=== PATIENT | female | born 1995 | race African-American/Black ===

== ENCOUNTER 2025-07-04 20:13 | Emergency (ER) | payer OTHER ==
[2025-07-04] MEDS ORDERED: Metoclopramide HCl 10 MG (2 mL) VIAL ONE (21:16)
[2025-07-04] MEDS ORDERED: diphenhydrAMINE 50 MG/ML VIAL ONE (21:16)
== END 2025-07-04 22:03 | disposition home or self-care (01) ==
LOC: CSHERS 20:13
DX: R51.9 Headache, unspecified (principal); R11.0 Nausea
CPT/HCPCS: 87428; 96372; 99284; J1200; J2765